=== PATIENT | female | born 1960 | race Caucasian/White ===

== ENCOUNTER 2016-06-09 10:18 | Emergency (ER) | payer OTHER ==
[~2016-06-09] VITALS: Ht 162.6 cm; Wt 115.0 kg
[2016-06-09 10:26] VITALS: Ht 162.6 cm; Wt 115.0 kg
[2016-06-09] MEDS ORDERED: CEFTRIAXONE 1 GM INJ IM ONE (11:30)
[2016-06-09] MEDS ORDERED: BACTDS PO (12:00)
[2016-06-09] MEDS ORDERED: CEPH-443 PO (12:00)
[2016-06-09] MEDS ORDERED: IBUP-1542 PO (12:00)
--- NOTE | 2016-06-09 13:57 | ERD ---
ER Documentation Chief Complaint Date/Time DATE: 06/09/16 TIME: 13:54 Chief Complaint pt bib self with c/o "bump" with smelly fluid to stomach x 2 wks HPI This is a 55-year-old female presents to the ER with a bump on her abdomen that has been there for the last 2 weeks. Patient has been trying to put aloe on it and states that he has not been working. Patient states that yellow purulent discharge comes out from the bump on her abdomen. She does admit to some pain. Pain is dull and constant. It is worsening or she touches it. Patient denies any fevers or chills. ROS 12 point review of systems was done, all negative except per HPI. Medications Home Meds Active Scripts Ibuprofen* (Motrin*) 600 Mg Tab, 600 MG PO Q6, #30 TAB Prov:ANAID,JESUS C 06/09/16 Sulfamethoxazole-Trimethoprim* (Bactrim* DS) 800-160 Mg Tab, 1 TAB PO BID for 7 Days, TAB Prov:ANAIDJESUS C 06/09/16 Cephalexin* (Keflex*) 500 Mg Capsule, 500 MG PO QID for 7 Days, CAP Prov:ANAID,JESUS C 06/09/16 Allergies Allergies: Coded Allergies: No Known Allergy (Unverified , 06/09/16) PMhx/Soc History of Surgery: Yes () Anesthesia Reaction: No Hx Neurological Disorder: Yes (bells palsy) Hx Respiratory Disorders: No Hx Cardiac Disorders: Yes Hx Alcohol Use: No Hx Substance Use: No Hx Tobacco Use: No Smoking Status: Never smoker Physical Exam Vitals Vital Signs Date Time Temp Pulse Resp B/P Pulse Ox O2 Delivery O2 Flow Rate FiO2 06/09/16 10:26 97.9 74 18 147/85 97 Physical Exam GENERAL: The patient is well developed and appropriate for usual state of health , in no apparent distress. HEENT: Atraumatic. CHEST: Clear to auscultation bilaterally. There are no rales, wheezes or rhonchi. HEART: Regular rate and rhythm. No murmurs, clicks, rubs or gallops. ABDOMEN: Soft, nontender and nondistended. Good bowel sounds. No rebound or guarding. No gross peritonitis. No gross organomegaly or masses. No Gordillo sign or McBurney point tenderness. SKIN: There is a 3 cm x 4 cm round area of induration on the stomach. No discharge is seen. Minor surrounding erythema. Results 24 hrs Current Medications Medications (Trade) Dose Ordered Sig/Payton Route PRN Reason Start Time Stop Time Status Last Admin Dose Admin Ceftriaxone Sodium (Rocephin) 1 gm ONCE ONCE IM 06/09/16 11:30 06/09/16 11:31 DC 06/09/16 11:27 Procedures/MDM This is a 55-year-old female presents to the ER with an abscess. At this time area is indurated. I am not able to incise and drain the area as it is not fluctuant. Patient however does need antibiotics. She was given a shot of Rocephin here in the ER without any complications. She will be sent home with Bactrim with Keflex. Patient is afebrile and well-appearing. She is to follow- up with her primary care doctor within 1-2 days or return to ER sooner if symptoms worsen. My medical decision making sure with the patient she understands and agrees with plan. Departure Diagnosis: Primary Impression: Abscess Condition: Stable Patient Instructions: Abscess, Antiobiotic Treatment Only Referrals: JESSIKA MILAN (PCP) Additional Instructions: Llame al doctor MANJU y asher joseph CODY PARA DENTRO DE 1-2 BERNAL.Dgale a la secretaria que nosotros le instruimos hacer esta cody.Avise o llame si garcia condicin se empeora antes de la cody. Regresa aqui si peor o no mejor. JESUS WORRELL Jun 09, 2016 13:57
== END 2016-06-09 12:05 | disposition home or self-care (01) ==
LOC: FTE 10:18
DX: L02.211 Cutaneous abscess of abdominal wall (principal)
CPT/HCPCS: 96372; J0696; Z7502

== ENCOUNTER 2017-09-22 18:23 | Emergency (ER) | END 2017-09-22 20:02 | disposition home or self-care (01) ==